=== PATIENT | male | born 1980 | race Caucasian/White ===

== ENCOUNTER 2016-03-23 15:23 | Emergency (ER) | payer BC ==
[2016-03-23] MEDS ORDERED: CLINDAMYCIN HCL 150 MG CAPSULE PO ONE (17:38)
[2016-03-23] MEDS ORDERED: KETOROLAC TROMETHAMINE 60 MG/2 ML VIAL IM ONE ×2 (17:40→18:20)
--- OUTSIDE RECORDS SUMMARY | 2016-03-23 17:47 | XMS REPORT | Continuity of Care Document ---
:1980 Author Organization [facility] ([facility]) Address [address] [place] [address] Phone [phone] Care Team Providers Name Role Phone Dennis Ramírez Primary Care Provider [phone] Source Comments This disclosure is being made pursuant to the Care Everywhere program, applicable federal and state laws, and may not contain all informaitonavailable regarding this patient.[facility] ([facility]) Active Allergies and Adverse Reactions Allergen Noted Date Severity Reactions Comments Penicillins 06/16/2014 Unknown Current Medications Prescription Sig. Disp. Refills Start Date End Date Status HYDROcodone-acetaminophen Take 1 Tab by Active 5-325 mg per tablet mouth every 4 hours as needed HYDROcodone-acetaminophen Take 1-2 Tabs by 10 Tab 0 06/16/2014 Active 5-325 mg per tablet mouth every 6 hours as needed ibuprofen 800 mg tablet Take 1 Tab (800 mg 30 Tab 0 06/16/2014 Active total) by mouth every 8 hours as needed acetaminophen 325 mg Take 2 Tabs (650 60 Tab 0 06/16/2014 Active tablet mg total) by mouth every 6 hours as needed traZODone 50 mg tablet Take 1 Tab (50 mg 14 Tab 0 06/16/2014 Active total) by mouth at bedtime Active Problems Not on file Social History Tobacco Use Types Packs/Day Years Used Date Current Every Day Smoker 1 10 Smokeless Tobacco: Never Used Alcohol Use Drinks/Week oz/Week Comments Yes infrequent Last Filed Vital Signs Vital Sign Reading Time Taken Blood Pressure 138/83 06/16/2014 5:22 PM CDT Pulse 110 06/16/2014 5:22 PM CDT Temperature 36.2 C (97.2 F) 06/16/2014 5:22 PM CDT Respiratory Rate 14 06/16/2014 5:22 PM CDT Height - - Weight 81.647 kg (180 lb) 06/16/2014 5:22 PM CDT Body Mass Index - - Oxygen Saturation 96% 06/16/2014 5:22 PM CDT Plan of Care Health Maintenance Due Date Last Done Comments Hepatitis B Vaccine (1 of 3 - Primary Series) 1980 Tdap Vaccine 1992 Lipid Disorder Screening 1999 MMR Vaccine 1999 Td Vaccine 1999 Varicella Vaccine (1 of 2 - Adult - No Evidence of 1999 Immunity) Pneumococcal Vaccine (1 of 1 - PPSV23) 2000 Influenza Vaccine: Seasonal (#1) 09/11/2015 Results from Last 3 Months Not on file
--- NOTE | 2016-03-23 18:12 | ERNOTE ---
[facility] Date of Service: 03/23/16 Presenting Symptoms: dental pain Time Seen by Provider: 03/23/16 17:30 Source: patient Exam Limitations: no limitations - Immun/Allergies/Home Medications Immunizations: IMMUNIZATION HX Immunizations Up to Date Yes History of Influenza Vaccine No Hx Pneumococcal Vaccination No Allergies/Adverse Reactions: Allergies Allergy/AdvReac Type Severity Reaction Status Date / Time Penicillins Allergy Unknown Verified 03/23/16 15:47 Home Medications: HOME MEDICATIONS Clindamycin HCl [Cleocin HCl] 300 mg PO Q6H #40 capsule 03/23/16 [Last Taken Unknown] Naproxen [Naprosyn] 500 mg PO BID PRN #60 tab 03/23/16 [Last Taken Unknown] traZODone HCL [Desyrel] 25 mg PO HS PRN 03/23/16 [Last Taken Unknown] - History of Present Illness Narrative: Pt. comes in with c/o R mandible pain after his wisdom tooth broke. Pt. denies any numbness tingling, SOB, CP, NVD, ear pain or dizziness. Pt. denies any prehospital treatment. Pt. denies any alleviating factors but states that breathing and eating exacerbate the pain. Review of Systems - Review of Systems Constitutional: Present: no symptoms reported. Absent: recent illness, fever, chills, weakness, fatigue, malaise EYE: Present: no symptoms reported ENT: Present: other - mouth pain Respiratory: Present: no symptoms reported. Absent: shortness of breath, cough , wheezing Cardiology: Present: no symptoms reported. Absent: chest pain, palpitations, edema Gastrointestinal/Abdominal: Present: no symptoms reported. Absent: nausea, vomiting, diarrhea Genitourinary: Present: no symptoms reported Musculoskeletal: Present: no symptoms reported. Absent: back pain, joint pain Skin: Present: no symptoms reported Neurological: Present: no symptoms reported. Absent: headache, dizziness/light- headedness, numbness All Other Systems: All systems neg except as marked - Patient's Past Medical History Patient History - Medical: No pertinent hx Patient History - Cardiac/Respiratory: No pertinent hx Patient History - Cancer: Skin Patient History - Surgical Procedures: Other Patient History - Other: None - Social History Living Situations: home Abuse History: No History of abuse Psych History: No pertinent hx Smoking Status: Current every day smoker Have you smoked in the past 12 months: Yes Alcohol Use: occasionally Drug Use: none - Immunizations Immunizations Up to Date: Yes Hx Pneumococcal Vaccination: No History of Influenza Vaccine: No Physical Exam - Physical Exam General Appearance: Present: wd/wn, alert, no apparent distress Eye Exam: Normal inspection: bilateral, PERRL: bilateral, EOMI: bilateral Ears, Nose, Throat: Present: hearing grossly normal, normal pharynx, other - R mandibular wisdom tooth fracture with caries Neck: Present: normal inspection, nontender. Absent: lymphadenopathy (R), lymphadenopathy (L) Respiratory: Present: no respiratory distress, normal breath sounds, no accessory muscle use, chest nontender, lungs clear Cardiovascular/Chest: Present: regular rate, rhythm, no murmur, normal peripheral pulses Back Exam: Present: normal inspection, normal range of motion, no CVA tenderness , no vertebral tenderness Extremity Exam: Present: normal inspection, non-tender, no edema, normal range of motion Neurological Exam: Present: alert, oriented, normal mood/affect, no motor/ sensory deficits Skin Exam: Present: normal color, warm/dry. Absent: pallor, skin rash ED Progress - Vital Signs Patient's Vital Signs:: I have reviewed the patient's vital signs. Vital Signs: Vital Signs 03/23/16 15:35 Temperature 36.4 C L Pulse Rate 92 Respiratory 16 Rate Blood Pressure 154/85 O2 Sat by Pulse 98 Oximetry - Progress/Reassessment Chief Complaint: Dental Problem Departure Clinical Impression: Broken tooth-uncomplic Qualifiers: Encounter type: initial encounter Fracture type: closed Qualified Code(s): S02.5XXA - Fracture of tooth (traumatic), initial encounter for closed fracture - Departure Disposition: Home self-care Condition: Good Instructions: Tooth Injuries, [id number] Additional Instructions: Please follow up with dentist as planned Referrals: [Primary Care Provider] - Prescriptions: Clindamycin HCl [Cleocin HCl] 300 mg PO Q6H #40 capsule Naproxen [Naprosyn] 500 mg PO BID PRN #60 tab PRN Reason: Pain
[2016-03-23] MEDS ORDERED: CLINDAMYCIN HCL 150 MG CAPSULE ONE (18:20)
[2016-03-23 18:46] VITALS: BP 133/84
== END 2016-03-23 18:30 | disposition home or self-care (01) ==
LOC: ER 15:23
DX: S02.5XXA Fracture of tooth (traumatic), initial encounter for closed fracture (principal); F17.210 Nicotine dependence, cigarettes, uncomplicated; Z85.828 Personal history of other malignant neoplasm of skin